=== PATIENT | female | born 1960 | race African-American/Black ===

== ENCOUNTER 2020-11-29 17:52 | Emergency (ER) | payer OTHER, SELFPAY ==
[2020-11-29 17:57] VITALS: BP 117/76; PULSE 89; TEMP 97.8; BMI 30.3
== END 2020-11-29 18:43 | disposition home or self-care (01) ==
LOC: JERFT 17:52 → JER 17:52 → JERFT 18:43
DX: S50.811A Abrasion of right forearm, initial encounter (principal); S50.812A Abrasion of left forearm, initial encounter; W50.4XXA Accidental scratch by another person, initial encounter
CPT/HCPCS: 99282-25

== ENCOUNTER 2024-06-29 12:58 | Emergency (ER) | payer OTHER ==
[2024-06-29 13:04] VITALS: BP 147/82; PULSE 73; RESP 18; TEMP 97.5; BMI 29.2
[2024-06-29] MEDS ORDERED: MECLIZINE HCL 25 MG TABLET (FP) ONE ×2 (14:06→15:04)
[2024-06-29] MEDS: MECLIZINE HCL 25 MG TABLET (FP) PO ONE ×2 (14:08→15:09)
[2024-06-29 15:30] LABS: BASO % 0.6 % (0-2.0); EOS % 2.3 % (0-4.5); HEMATOCRIT 35.7 % (32.4-45.2); HEMOGLOBIN 11.2 GM/dL (10.7-15.3); LYMPH % 48.6 % (8-40); MCH 27.2 pg (25.7-33.7); MCHC 31.4 g/dl (32.0-36.0); MEAN CELL VOLUME 86.9 fl (80-96); MEAN PLT VOLUME 7.7 fl (7.5-11.1); MONO % 7.5 % (3.8-10.2); PLATELET COUNT 287 10^3/uL (134-434); RBC 4.11 M/mm3 (3.60-5.2); RDW 14.9 % (11.6-15.6); WHITE BLOOD COUNT 3.7 K/mm3 (4.0-10.0)
[2024-06-29 15:57] LABS: POTASSIUM 4.2 mmol/L (3.5-5.1)
[2024-06-29 15:59] LABS: CALCIUM 9.7 mg/dL (8.5-10.1)
[2024-06-29 16:00] LABS: ALBUMIN 4.1 g/dl (3.4-5.0); BLOOD UREA NITROGEN 11.9 mg/dL (7-18)
[2024-06-29 16:03] LABS: CREATININE 0.8 mg/dL (0.55-1.3)
[2024-06-29 16:05] LABS: BILIRUBIN,TOTAL 0.3 mg/dL (0.2-1); TOT PROT 7.7 g/dl (6.4-8.2)
== END 2024-06-29 17:00 | disposition home or self-care (01) ==
LOC: JER 12:58
DX: R42 Dizziness and giddiness (principal); R11.2 Nausea with vomiting, unspecified
CPT/HCPCS: 36415; 80053; 85025; 99283-25